=== PATIENT | male | born 1960 | race Caucasian/White ===

== ENCOUNTER 2019-08-22 09:45 | Emergency (ER) | payer MEDICAID ==
[~2019-08-22] VITALS: Ht 170.2 cm; Wt 81.8 kg
[~2019-08-22 09:45] MED LIST: AVALIDE 150-12.1 TA1 PO; BAYER CHEWABLE81 MG PO; CYCLOBENZAPRINE5 MG PO; HYDROCODONE-APA1 TAB PO; IBUPROFEN800 MG PO; LIPITOR10 MG PO; METOPROLOL TART50 MG PO; NORVASC10 MG PO; PEPCID20 MG PO; PLAVIX75 MG PO; RESTORIL15 MG PO
[2019-08-22 09:49] VITALS: Ht 170.2 cm; Wt 81.8 kg
[2019-08-22] MEDS ORDERED: NAPROSYN500 MG PO (10:12)
[2019-08-22] MEDS ORDERED: VIBRAMYCIN 100100 MG PO (10:12)
[2019-08-22] MEDS ORDERED: METOPROLOL TART50 MG PO (11:12)
[2019-08-22] MEDS ORDERED: NORVASC10 MG PO (11:12)
[2019-08-22 11:45] VITALS: BP 169/75
== END 2019-08-22 11:46 | disposition home or self-care (01) ==
LOC: D.ER 09:45
DX: L03.113 Cellulitis of right upper limb (principal); M79.641 Pain in right hand; I10 Essential (primary) hypertension